=== PATIENT | male | born 1965 | race Caucasian/White ===

== ENCOUNTER 2017-02-18 20:04 | Emergency (ER) | payer OTHER ==
--- NOTE | ~2017-02-18 | ER ---
PATIENT'S NAME: ANANT CORTEZ [facility] AGE: 51 Y [address] ROOM: [place] [id number] LOCATION: [facility] ADMIT DATE: 02/18/2017 ER/Outpatient Report DISCHARGE DATE: 02/18/2017 FAMILY PHYSICIAN: Juan Cooley MD ATTENDING PHYSICIAN: Matthew Aburto Admission date and time documented on the medical record. I saw the patient at 2020 hours. CHIEF COMPLAINT: Rectal bleeding. HISTORY OF PRESENT ILLNESS: This patient is a 51-year-old male who was at work. Had boweled once. Noticed that he had a feeling of bleeding in his underwear. He checked and he had bright red blood, some darkish blood in his underwear, he was actively bleeding. He felt kind of lump in his rectal area. Presented to the emergency room for evaluation. This bleeding started about 30 minutes prior to admission here to the emergency room. The patient is not having pain in his rectum. No abdominal pain, nausea, vomiting. He has not really had any constipation or hard stools. No chest pain, shortness of breath. No lightheadedness, dizziness, syncope, or near syncope. No headache, eyes, ears, nose, throat, neck, or spine pain. No fall or trauma. No recent cold, coughs, flus, fever, chills, or sweats. No history of endocrine problems, neuro changes, or psych issues. No skin rashes or eruptions. No joint or muscle swelling, redness, or pain. HOME MEDICATIONS: See attached medication list. ALLERGIES: NONE. SOCIAL HISTORY: Nonsmoker, nondrinker. SIGNIFICANT PAST MEDICAL HISTORY: Gastroesophageal reflux, peptic ulcer disease, anxiety. OPERATIONS: None. REVIEW OF SYSTEMS: All systems reviewed by me are negative with the exception of those discussed in the history of present illness. PATIENT'S NAME: ANANT CORTEZ [facility] AGE: 51 Y [address] ROOM: [place] [id number] LOCATION: [facility] ADMIT DATE: 02/18/2017 ER/Outpatient Report DISCHARGE DATE: 02/18/2017 FAMILY PHYSICIAN: Juan Cooley MD ATTENDING PHYSICIAN: Matthew Aburto PHYSICAL EXAMINATION: VITAL SIGNS: Temperature 97.5, tympanic; pulse 92; respirations 16; blood pressure 146/90; O2 saturation on room air is 98%. HEENT: Head, normocephalic. Eyes, ears, nose, and throat; clear. Mucous membranes moist. NECK: Negative. No tenderness. No nuchal rigidity. No thyromegaly or cervical adenopathy. SPINE: Negative. LUNGS: Clear. Good air flow. No rales, rhonchi, or wheezes. HEART: Regular. Pulses are palpable. ABDOMEN: Soft, nondistended, nontender. Good bowel tones. No organomegaly or abnormal mass palpable. RECTAL: The patient has blood, perirectal area. He has external hemorrhoid that had been bleeding but has a clot sticking out of the ruptured area. No masses palpable. EXTREMITIES: Intact. NEURO: Intact. LABORATORY DATA: CMS was normal except for low calcium of 8.1, elevated creatinine of 1.5, low GFR of 49. White count 7800, 63 segs, 27 lymphs, 8 monos, 1 eosinophil, 1 baso. Hemoglobin is 16 with hematocrit 47.7, platelet count is 187,000. EMERGENCY DEPARTMENT COURSE: We did start the patient on IV normal saline, fluids. IMPRESSION: 1. Bleeding external hemorrhoid. 2. Renal insufficiency with creatinine 1.5, BUN of 16, GFR of 49. 3. Anxiety. 4. Peptic ulcer disease with reflux. PLAN: The patient was discharged from the emergency department, home, observation. Activity as tolerated. Warm sitz baths 2 to 3 times a day for 30 minutes each. Anusol HC suppositories twice a day. Anusol cream twice a day. Colace twice a day. Follow up with personal physician mid next week or sooner if needed. Discussion ensued with the patient concerning my findings and recommendations, he understands. MATHTEW ABURTO MD PATIENT'S NAME: ANANT CORTEZ [facility] AGE: 51 Y [address] ROOM: [place] [address] LOCATION: ED ADMIT DATE: 02/18/2017 ER/Outpatient Report DISCHARGE DATE: 02/18/2017 FAMILY PHYSICIAN: Juan Cooley MD ATTENDING PHYSICIAN: Matthew Aburto/modl /[id number] d: 02/19/17 0044 t: 02/19/17 1826, OUTPATIENT REPORT
[2017-02-18 20:34] LABS: BASOPHIL # 0.1 K/uL (0.0-0.2); BASOPHIL % 0.6 %; EOSINOPHIL # 0.1 K/uL (0.0-0.5); EOSINOPHIL % 1.3 %; HEMATOCRIT 47.7 % (37.0-53.0); IMMATURE GRANULOCYTE % 0.4 %; LYMPHOCYTE # 2.1 K/uL (0.8-4.0); LYMPHOCYTE % 26.8 %; MCH 29.4 pg (27.0-34.0); MCHC 33.5 gm/dL (32.0-36.5); MCV 87.5 fl (83.0-98.0); MONOCYTE # 0.6 K/uL (0.0-1.0); MONOCYTE % 7.5 %; MPV 9.7 fl (9.4-12.4); NEUTROPHIL # (ANC) 4.9 K/uL (1.4-9.0); NEUTROPHIL % 63.4 %; NRBC % 0 /100WBC (0-0.00); PLATELET COUNT 187 K/uL (150-450); RBC 5.45 M/uL (4.00-6.00); RDW-CV 12.7 % (11.9-14.6); WBC 7.8 K/uL (4.0-11.0)
[2017-02-18 20:49] LABS: ALBUMIN 4.1 gm/dL (3.5-5.0); CALCIUM 8.1 mg/dL (8.5-10.5); CREATININE 1.5 mg/dL (0.6-1.3); TOTAL BILIRUBIN 0.3 mg/dL (0.0-1.5); TOTAL PROTEIN 7.1 g/dL (6.0-8.4)
== END 2017-02-18 21:11 | disposition disaster alternative care site (69) ==
LOC: GMED 20:04
PROVIDERS: Emergency Medicine
DX: K64.5 Perianal venous thrombosis (principal); N28.9 Disorder of kidney and ureter, unspecified; F41.9 Anxiety disorder, unspecified; K27.9 Peptic ulcer, site unspecified, unspecified as acute or chronic, without hemorrhage or perforation; K21.9 Gastro-esophageal reflux disease without esophagitis
CPT/HCPCS: J7030